=== PATIENT | male | born 1960 | race Caucasian/White ===

== ENCOUNTER 2024-07-25 09:06 | Observation (INO) ==
--- NOTE | 2024-06-15 12:34 | PAT Medication Instructions ---
Medication Instructions Date of Service June 15, 2024 Home Medications geriatric multivitamin-min 1 tab PO QAM tamsulosin 0.4 mg capsule 0.4 mg PO UD Continue as directed tamsulosin 0.4 mg capsule 0.4 mg PO UD DO NOT take the morning of surgery geriatric multivitamin-min 1 tab PO QAM MORNING OF SURGERY: NOTHING TO EAT OR DRINK AFTER MIDNIGHT Other Notes If you have any questions please call us at [phone] or [phone] or [phone] or [phone]
--- NOTE | 2024-06-22 09:12 | Anesthesiology Consultation ---
Date of Service June 22, 2024 Assessment & Plan (1) Encounter for pre-operative examination: Chart Review Chart Review: Acceptable Risk for Surgery and Patient seen in Pre Admission Testing Pt currently scheduled as 23 hours observation. If surgeon decides to change patient to Same Day Joint, patient would be acceptable risk for PORTER, pending patient is motivated, has good support and surgeon's office completes Same Day [facility] Program preop requirements. Per PAT appt on 06/22/24, no recent illness/disease exposures, illness related symptoms, or recent illness/disease positive tests. Will leave to surgeon's discretion if preop Covid testing needed Left knee arthroscopy, partial medial meniscectomy 10/09/22= Done under [facility] with LMA #5. Teaching & Discussion Pre-Anesthesia Teaching/Discussion Notes: Instructed NPO after midnight before surgery,except medications with 15 cc of water. Medication instructions provided according to the PAT guidelines. History Surgery Operation Date: 07/25/24 09:00 Proposed Procedures p Left Anterior Total Hip Arthroplasty - Jerome Ryder DO Height/Weight Height: 6 ft Weight: 94.8 kg Allergies Allergy/AdvReac Type Severity Reaction Status Date / Time No Known Allergies Allergy Verified 06/09/24 07:30 Medications Home Medications Medication Instructions Recorded Confirmed Last Taken geriatric multivitamin-min 1 tab PO QAM 09/10/21 06/09/24 10/08/22 tamsulosin 0.4 mg capsule 0.4 mg PO UD 10/01/22 06/09/24 10/08/22 Wheeled Walker #1 ea 06/22/24 Unknown Past Medical History Medical History BPH (benign prostatic hyperplasia) Osteoarthritis of left hip Osteoarthritis of left knee Exercise / Class Metabolic Activity II 4-5 Yardwork/Stairs/Walk up hill (one flight of stairs - no chest pain or SOB ) Past Family History Family History Son Diabetes Other No family history of adverse response to anesthesia Past Surgical History Surgical History History of repair of rotator cuff left History of tonsillectomy History of tooth extraction Hx of elbow surgery left Hx of umbilical hernia repair Hx of vasectomy S/P left knee arthroscopy (09/2022) 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 No hx of seizures, stroke, AR, apnea/snoring. No hx of blood clots or blood transfusions Physical Exam Vital Signs VITALS BP 126/83 P 60 TEMP 97.6 SP02 98% RESP 16 Constitutional no acute distress ENMT Mouth: no TMJ clicking Thyromental Distance: > or= 3.5 Finger Breadths (3.5) Mallampati Class: I Missing molar Neck + facial hair (advised to shave or trim ); neck extension not limited Respiratory normal respiratory effort; no respiratory distress Auscultation: lungs clear to auscultation bilaterally; no wheezes Cardiovascular Rate/Rhythm: regular rate and regular rhythm Heart Sounds: no murmur Vessels: no carotid bruit Musculoskeletal Spine: no pain with cervical ROM Extremities: extremities normal to inspection Psychiatric Orientation: alert Lab Results Anesthesia Preop Results Results Anesthesia Widget: WBC 5.36 K/ul (4.8-10.8) 06/22/24 Hgb 15.2 g/dl (14.0-18.0) 06/22/24 Hct 45.9 % (42.0-52.0) 06/22/24 Plt 153 K/uL (130-400) 06/22/24 Na 140 mmol/L (136-145) 06/22/24 K 4.5 mmol/L (3.5-5.1) 06/22/24 Cl 107 mmol/L (98-107) 06/22/24 CO2 28 mmol/L (21-32) 06/22/24 BUN 18 mg/dl (6-23) 06/22/24 Creat 0.71 mg/dl (0.6-1.4) 06/22/24 Glucose Level 104 mg/dl (70-99(Fasting)) H 06/22/24 PT 10.5 Seconds (9.0-12.0) 06/22/24 PTT 25 Seconds (21-31) 06/22/24 INR 1.0 (0.9-1.1) 06/22/24 Blood Type AB Positive 06/22/24 Antibody Screen NEGATIVE 06/22/24 Testing Electrocardiogram Date: 06/22/24 Findings: + NSR @ (62bpm) Normal EKG per cardio Chest X-Ray Date: 06/22/24 Findings: + NAD
--- NOTE | 2024-07-21 07:30 | History & Physical Report ---
Date of Service July 21, 2024 Assessment & Plan (1) Osteoarthritis of left hip: We will proceed with a left anterior total of arthroplasty. Postoperatively he will be started on aspirin for DVT prophylaxis and kept overnight in the hospital for postop medical management. He plans to use home health up in [facility] after discharge. History of Present Illness Chief Complaint: Osteoarthritis of the left hip. Primary Care Provider: KENYON PCP Hilario is a pleasant 63-year-old male who has been dealing with chronic increasing left hip and groin pain. X-rays and clinical examination have been diagnostic for advanced arthritis of the left hip. After failing extensive conservative treatment, including multiple injections, he has elected to proceed with a left anterior total hip arthroplasty. . Allergies Allergy/AdvReac Type Severity Reaction Status Date / Time No Known Allergies Allergy Verified 06/09/24 07:30 Home Medications Medication Instructions Recorded Confirmed Type geriatric multivitamin-min 1 tab PO QAM 09/10/21 06/09/24 History tamsulosin 0.4 mg capsule 0.4 mg PO UD 10/01/22 06/09/24 History Wheeled Walker #1 ea 06/22/24 Rx Past Med/Surg History Problem List Osteoarthritis of left hip Osteoarthritis of left knee S/P left knee arthroscopy Medial meniscus tear Scapular fracture Status post reverse total replacement of right shoulder (~09/2021) Encounter for pre-operative examination Medical History Osteoarthritis of left knee Osteoarthritis of left hip BPH (benign prostatic hyperplasia) Surgical History 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) S/P left knee arthroscopy (09/2022) Hx of vasectomy History of tooth extraction Hx of umbilical hernia repair History of repair of rotator cuff left Hx of elbow surgery left History of tonsillectomy Family History Son Diabetes Other No family history of adverse response to anesthesia Social History Smoking Status: Never smoker Tobacco Type: Smokeless Tobacco (Dip or Chew) Second Hand Exposure: No; Do You Dip or Chew Tobacco: Yes (chews daily (1 box/3-4 days - advised)); Hx Alcohol Use: No Hx Substance Use: No Preferred Language: Uzbek Communication Ability: Effective Offset Machine Operator Required: No Beliefs That Will Affect Care: None Current Living Situation: Family Feels Safe at Home: Yes Assistive Devices: Glasses Review of Systems All systems reviewed & are unremarkable except as noted in HPI & below. Physical Exam On physical exam of the left hip, he has decreased range of motion. He is pain with internal/external rotation. All of his pain is located in the groin.. Constitutional WD/WN, vitals as above Eyes PERRL, conjunctivae normal, anicteric sclerae ENMT external ear and nose normal, oropharynx normal Neck trachea midline, no thyromegaly Respiratory normal respiratory effort Cardiovascular RRR, no murmur, no edema Gastrointestinal (Abdomen) normal bowel sounds, soft, nontender, no hepatosplenomegaly Psychiatric A+Ox3, euthymic affect Results & Data Results & Data Laboratory Results . Diagnostic Findings X-rays of the left hip show advanced osteoarthritis with joint space narrowing, osteophyte summation, and [id number] articulation PG Care Time/CCT Total # of Minutes Spent Total Time Spent with Patient: Total time spent is greater than 50% in coordination of care (as documented) at patient's floor/unit and/or counseling patient: Coding Level of Care Code None Diagnoses Osteoarthritis of left hip M16.12
[~2024-07-25 09:06] MED LIST: BUPIVACAINE 0.5 % 5 MG/1 ML PF 10ML VIAL ONE
[2024-07-25] MEDS: LR 500ML BOLUS, THEN 15ML/HR IV SCH (09:40)
[2024-07-25] MEDS: FAMOTIDINE 20 MG TAB PO SCH (09:45)
[2024-07-25] MEDS: ACETAMINOPHEN 500 MG TAB PO SCH ×2 (09:45→16:19)
[2024-07-25] MEDS: dexAMETHasone**PF** 10 MG/ML VIAL IV SCH (09:45)
[2024-07-25] MEDS: GABAPENTIN 600 MG DOSE PO SCH (09:45)
[2024-07-25] MEDS: LR 60ML/HR IV SCH (09:46)
[2024-07-25] MEDS ORDERED: PROPOFOL IV EMULSION 10 MG/ML 20 ML VIAL IV ONE (10:14)
[2024-07-25] MEDS ORDERED: MIDAZOLAM HCL 1 MG/ML 2ML VIAL ONE (10:15)
--- NOTE | 2024-07-25 10:57 | History & Physical Bridge Note ---
Date of Service July 25, 2024 History & Physical Bridge Note I have examined the patient, reviewed the History & Physical and in the interval since the performance of the History & Physical I have noted the following changes of clinical significance: no changes noted
[2024-07-25] MEDS ORDERED: ATROPINE SULFATE 0.1 MG/ML 10ML SYR IV PRN (11:22)
[2024-07-25] MEDS ORDERED: ONDANSETRON INJ 2 MG/ML 2 ML VIAL IV PRN ×2 (11:22→14:13)
[2024-07-25] MEDS ORDERED: ePHEDrine sulfate 50 MG/ML AMP IV PRN (11:22)
[2024-07-25] MEDS ORDERED: fentaNYL citrate PF 100 MCG/2 ML VIAL IV PRN (11:22)
[2024-07-25] MEDS: TRANEXAMIC ACID 1,000 MG **IV Pre-op IV SCH (11:39)
[2024-07-25] MEDS: ceFAZolin 2000MG 2,000 MG/15 ML SYR IV SCH (11:57)
[2024-07-25] MEDS ORDERED: ONDANSETRON INJ 2 MG/ML 2 ML VIAL ONE (11:59)
[2024-07-25] MEDS ORDERED: GLYCOPYRROLATE 0.2 MG/ML VIAL ONE (11:59)
[2024-07-25] MEDS ORDERED: KETAMINE HCL 10MG/ML SYR ONE (11:59)
[2024-07-25] MEDS ORDERED: PHENYLEPHRINE 100MCG/ML 5ML SYR ONE ×2 (12:04→12:28)
[2024-07-25] MEDS: ORTHO JOINT ANESTHETIC ONE (12:15)
[2024-07-25] MEDS: ROPIV 0.5% 246mg, Ketorolac 30mg, EPINEPHrine 0.5mg in NSS INFIL SCH (12:15)
[2024-07-25] MEDS ORDERED: ePHEDrine sulfate 50 MG/ML AMP ONE (12:41)
[2024-07-25] MEDS ORDERED: PHENYLEPHRINE HCL 10 MG/ML VIAL ONE (12:41)
--- NOTE | 2024-07-25 12:43 | Operative Report ---
PG Post Operative Report Pre & Post Diagnosis Operation Date: 07/25/24 11:30 Pre-Op Diagnosis: Left Hip Arthritis Post-Op Diagnosis: Left Hip Arthritis I identified the patient and participated in the time-out.: Yes Procedure Operation Date: 07/25/24 11:30 Actual Procedures p Left Anterior Total Hip Arthroplasty(Left) - Jerome Ryder DO Surgeon Jerome Ryder DO [employer] Ar Pearl PA-C Estimated Blood Loss 250 Findings Consistent with Post-Op Diagnosis Specimens Left femoral head Description of Procedure Implants used I used a ZimmerBiomet total hip arthroplasty system with a size 5 standard offset Avenir Complete stem, a 54 mm G7 cup with a 25mm screw, an E1 polyethylene liner, a 40 mm ceramic head with a +3.5 neck. Hilario arrived at the hospital for the above procedure. He was seen in the preoperative holding area and the operative extremity was identified and signed. He was given a spinal anesthetic, a preoperative antibiotic, and TXA. He was then taken back to the operating room and laid on the table in the supine position. He was given basic sedation. The operative leg was secured to a P uristst leg positioner. The hip was then prepped and draped in sterile fashion. A timeout was done and the patient and the operative extremity was properly identified. An anterior approach was used. Dissection was taken down through the fascia and the tensor muscle belly was retracted laterally and the rectus was retracted medially. The circumflex vessels were identified and ligated. The capsule was then incised and tagged for later repair. The femoral neck was then cut and the femoral head was removed. The acetabulum was exposed. Time was spent doing a complete circumferential labral release. Sequential reaming of the acetabulum up to a size 53 reamer was done. Final reamings were done under fluoroscopy to ensure appropriate version. A Biomet 54 mm G7 cup was then impacted into place. A single 25 mm screw was placed. The E1 polyethylene liner was then snapped into place. Surrounding soft tissues were then injected with 100 cc of an orthopedic pain control cocktail. The proximal femur was then exposed. Sequential broaching up to a size 5 broach was done. Off that broach a size 40 head with a +3.5 neck was trialed. The hip was reduced and fluoroscopic images showed anatomic alignment of the implants in acceptable length. The broach was removed. The final size 5 standard offset Avenir Complete stem was then impacted into place. A ceramic 40 mm head with a +3.5 neck was then impacted onto the stem and the hip was reduced. Final fluoroscopic images showed anatomic alignment of the hip. The capsule was then closed with #1 Vicryl suture. A dilute betadyne lavage was then done for 3 minutes. The joint was then irrigated with normal saline solution. The fascia was closed with #1 PDS suture. Skin was closed with 2-0 Vicryl, luly, and a Silverlon dressing. He was then transferred to a hospital bed and taken to the post anesthesia care unit in stable condition. He tolerated the procedure well. Ar Pearl PA-C, was present for the entire procedure. He was critical for patient positioning, prepping, draping, retraction exposure, wound closure and application of sterile dressing. I attest to the content of the Intraoperative Record and any orders documented therein. Any exceptions are noted below.
[2024-07-25] MEDS: TRANEXAMIC ACID 1,000 MG **IV Intra-op IV SCH (12:45)
--- NOTE | 2024-07-25 13:20 | Fluoroscopy Report ---
FL hip LT 1V CLINICAL HISTORY: LEFT ANTERIOR HIP COMPARISON STUDY: None FLUOROSCOPY TIME: 12 seconds FLUOROSCOPY IMAGES: 1 EXPOSURE DOSE: 1.3 mGy FINDINGS: Fluoroscopy was provided for placement of left hip prosthesis. IMPRESSION: Intraoperative fluoroscopy. ACT 112: Negative or not required by law. Electronically signed by: Roddy Claire M.D. 07/25/2024 1:19 PM
--- NOTE | 2024-07-25 13:35 | XRay Report ---
XR hip 1V LT w pelvis CLINICAL HISTORY: IN PACU - Post Surgical COMPARISON: None FINDINGS: Left hip prosthesis shows no hardware complication. There is expected soft tissue gas. Ski n luly are present laterally. IMPRESSION: Unremarkable postoperative exam. ACT 112: Negative or not required by law. Electronically signed by: Roddy Claire M.D. 07/25/2024 1:33 PM
[2024-07-25] MEDS ORDERED: MAGNESIUM HYDROXIDE SUSP 30 ML UDC PO PRN (14:13)
[2024-07-25] MEDS ORDERED: HYDROmorphone INJ 0.5 MG/0.5 ML SYR IV PRN (14:13)
[2024-07-25] MEDS ORDERED: NALOXONE HCL 0.4 MG/1 ML VIAL/CARP IV PRN (14:13)
[2024-07-25] MEDS ORDERED: METOCLOPRAMIDE HCL INJ 5 MG/ML 2 ML VIAL IV PRN (14:13)
[2024-07-25] MEDS ORDERED: bisacodyL 10 MG SUPP PR PRN (14:13)
--- NOTE | 2024-07-25 15:28 | Anesthesiology Progress Note ---
Date of Service July 25, 2024 Anesthesia Post Procedure Vital Signs Vital Signs: Temp Pulse Pulse Resp BP Pulse Ox O2 Del Method 07/25/24 15:25 62 19 131/77 95 Room Air 07/25/24 15:15 51 L 14 111/64 99 Room Air 07/25/24 15:05 51 L 12 121/70 98 Room Air 07/25/24 14:55 71 20 127/79 100 Room Air 07/25/24 14:45 64 18 120/79 96 Room Air 07/25/24 14:35 70 15 115/72 98 Room Air 07/25/24 14:25 69 13 115/63 97 Room Air 07/25/24 14:15 65 15 97/69 L 98 Room Air 07/25/24 14:05 64 18 113/75 96 Room Air 07/25/24 13:55 70 15 108/75 97 Room Air 07/25/24 13:45 67 16 121/76 93 Room Air 07/25/24 13:35 79 16 103/70 97 Room Air 07/25/24 13:25 96 H 24 98/84 L 96 Room Air 07/25/24 13:15 101 H 13 99/73 L 94 Oxymask 07/25/24 13:09 36.4 C L 97 H 16 112/65 97 Oxymask 07/25/24 09:25 36.6 C 64 20 153/86 H 100 Room Air O2 Flow Rate 07/25/24 15:25 07/25/24 15:15 07/25/24 15:05 07/25/24 14:55 07/25/24 14:45 07/25/24 14:35 07/25/24 14:25 07/25/24 14:15 07/25/24 14:05 07/25/24 13:55 07/25/24 13:45 07/25/24 13:35 07/25/24 13:25 07/25/24 13:15 5 07/25/24 13:09 5 07/25/24 09:25 Pain Intensity Left Hip: Pain Intensity: 4 Transfer of Care Handoff Completed per policy Notes Mental Status: alert / awake / arousable Patient Amnestic to Procedure: Yes Nausea / Vomiting: adequately controlled Pain: adequately controlled Airway Patency, RR, SpO2: stable & adequate BP & HR: stable & adequate Hydration State: stable & adequate Neuraxial Anesthesia: was administered and sensory block is resolving Anesthetic Complications: no major complications apparent
[2024-07-25] MEDS: KETOROLAC TROMETHAMINE 15 MG/ML VIAL IV SCH (16:18)
[2024-07-25] MEDS: CEFEPIME 2000MG 2,000 MG/20 ML SYR IV SCH (16:49)
[2024-07-25] MEDS ORDERED: ceFAZolin 1000MG 1,000 MG/7.5 ML SYR IV SCH (19:15)
[2024-07-25] MEDS: DOCUSATE SODIUM 100 MG CAP PO SCH (20:16)
[2024-07-25] MEDS: ASPIRIN 81 MG ECTAB PO SCH (20:16)
[2024-07-25] MEDS: SENNA 8.6 MG TAB PO SCH (20:16)
[2024-07-26 02:18] VITALS: RESP 16
[2024-07-26 07:35] VITALS: BP 129/70; PULSE 55; TEMP 97.3; O2SAT 99
[2024-07-26] MEDS: TAMSULOSIN HCL 0.4 MG CAP PO SCH (07:53)
[2024-07-26] MEDS: dexAMETHasone 4 MG TAB PO SCH (07:54)
[2024-07-26] MEDS: MULTIVITAMIN TAB PO SCH (07:54)
[2024-07-26] MEDS: oxyCODONE HCL IR 5 MG TAB (IMMEDIATE RELEASE) PO PRN (07:57)
[2024-07-26] MEDS ORDERED: TAMSULOSIN HCL 0.4 MG CAP PO SCH (09:00)
--- NOTE | 2024-07-26 09:22 | Orthopedic Progress Note ---
Date of Service July 26, 2024 Assessment & Plan (1) Status post left hip replacement: Assessment: Status post left anterior total hip arthroplasty. Plan: Overall, he is doing quite well today with good pain control left hip. He will work with physical therapy later this morning to work on ambulation and range of motion exercises. He is on aspirin for DVT prophylaxis. He can be discharged home later this morning pending formal physical therapy evaluation recommendations. Silverlon dressing will remain in place for 7 days. He may leave the surgical site open to air after 7 days. He will follow-up with orthopedics in 2 weeks for continued postoperative management or sooner if needed. Subjective Uzma Rich was seen this morning resting comfortably in no apparent distress. He notes that his pain is well-controlled to his left hip. He notes he has been up and out of bed without any significant issues. He has yet to work physical therapy this morning. He denies any concerns with surgical incision site. Denies any active bleeding, discharge, or signs infection. He denies any other concerns today. Review of Systems All systems reviewed & are unremarkable except as noted in HPI & below. Physical Exam . On physical examination of the left hip, dressing is in place, clean, dry, and intact. There is no signs of active bleeding, discharge, or signs of infection. No tenderness to palpation. His leg is out in full extension. Limited range of motion and strength secondary to postoperative stiffness soreness. Calf soft nontender to palpation. Negative Homans' sign. Intact plantarflexion dorsiflexion of left ankle. +2 DP and PT pulses. Less than 2-second capillary refill. Normal sensation. Neurovascular intact. Results & Data Results & Data Laboratory Results . Diagnostic Findings . Hip X-Ray 07/25/24 11:30 FL hip LT 1V CLINICAL HISTORY: LEFT ANTERIOR HIP COMPARISON STUDY: None FLUOROSCOPY TIME: 12 seconds FLUOROSCOPY IMAGES: 1 EXPOSURE DOSE: 1.3 mGy FINDINGS: Fluoroscopy was provided for placement of left hip prosthesis. IMPRESSION: Intraoperative fluoroscopy. ACT 112: Negative or not required by law. Electronically signed by: Roddy Calire M.D. 07/25/2024 1:19 PM Hip/Pelvis X-Ray 07/25/24 13:11 XR hip 1V LT w pelvis CLINICAL HISTORY: IN PACU - Post Surgical COMPARISON: None FINDINGS: Left hip prosthesis shows no hardware complication. There is expected soft tissue gas. Skin luly are present laterally. IMPRESSION: Unremarkable postoperative exam. ACT 112: Negative or not required by law. Electronically signed by: Roddy Claire M.D. 07/25/2024 1:33 PM PG Care Time/CCT Total # of Minutes Spent Total Time Spent with Patient: Total time spent is greater than 50% in coordination of care (as documented) at patient's floor/unit and/or counseling patient: Coding Level of Care Code 13623 Post Operative Follow-Up Diagnoses Status post left hip replacement Z96.642
--- NOTE | 2024-07-26 09:24 | Discharge Summary ---
Date of Service July 26, 2024 Admission HPI (Per Admitting) Hilario is a pleasant 63-year-old male who has been dealing with chronic increasing left hip and groin pain. X-rays and clinical examination have been diagnostic for advanced arthritis of the left hip. After failing extensive conservative treatment, including multiple injections, he has elected to proceed with a left anterior total hip arthroplasty. . Admission Exam (Per Admitting) On physical exam of the left hip, he has decreased range of motion. He is pain with internal/external rotation. All of his pain is located in the groin.. Principal Diagnosis Same as "Discharge Diagnosis" noted below under Discharge Instructions. Discharge Exam . On physical examination of the left hip, dressing is in place, clean, dry, and intact. There is no signs of active bleeding, discharge, or signs of infection. No tenderness to palpation. His leg is out in full extension. Limited range of motion and strength secondary to postoperative stiffness soreness. Calf soft nontender to palpation. Negative Homans' sign. Intact plantarflexion dorsiflexion of left ankle. +2 DP and PT pulses. Less than 2-second capillary refill. Normal sensation. Neurovascular intact. Discharge Data Procedures Performed Operation Date: 07/25/24 11:30 Actual Procedures p Left Anterior Total Hip Arthroplasty, Uncemented(Left) - Jerome Ryder, DO Ordered Studies 07/25/24 11:30 FL hip LT 1V Routine Hospital Course (1) Status post left hip replacement: On July 25, 2024 Hilario arrived at [facility] and underwent a left anterior total hip arthroplasty performed by Dr. Ryder with no complications. He had a spinal anesthetic. Postoperatively, he was started on aspirin for DVT prophylaxis and transferred to the general orthopedic floor in stable condition. His hospital course was uneventful. On postoperative day #1, his vital signs are stable and his pain was well-controlled. He participated well with physical therapy working on ambulation and range of motion exercises. He was then discharged home in stable condition. He will follow-up with orthopedics in 2 weeks for continued postoperative management or sooner if needed. PG Care Time/CCT Total # of Minutes Spent Total Time Spent with Patient: Total time spent is greater than 50% in coordination of care (as documented) at patient's floor/unit and/or counseling patient: Discharge Plan Discharge Items Patient Disposition: Home - Self-Care Reason For Visit: Left Hip Arthritis Discharge Diagnosis: Osteoarthritis left hip Activity: Per Instructions section Non-emergency contact: Surgeon Call non-emergency contact if: your wound has increased redness and your wound has increased drainage Follow-up/Referrals: PCP,NO [Primary Care Provider] - Diet: Regular Addtl Attending Provider Instructions: Activity and Therapy Recommendations: * If you are using [facility] then therapy will be provided at your home until they feel you have accomplished all of your goals. * If you are using [facility] then Physical Therapy will be provided until they feel you are ready to start Outpatient Physical Therapy. * If you are not using home therapy then Outpatient Physical Therapy should start about 3-5 days from your day of surgery. Therapy will last about 6-10 weeks * You were shown a series of exercises in the hospital. Do these exercises three times each day including the exercises you were shown in physical therapy. * Get up and walk several times each day.~ For the first four weeks, try not to stand or walk for more than one hour at a time. If you do stand or walk for more than one hour, you will not hurt anything, but your leg will likely swell.~~ * As you feel comfortable, you may change from the walker or crutches to a cane and~then to independent walking. Medications: * Narcotic You will likely be sent home from the hospital with a prescription for the narcotic pain medication that worked best throughout your stay. * Cefadroxil -take the antibiotic twice a day for 10 days to help prevent infection. * Aspirin Most patients will be required to take Aspirin 81mg twice a day for 6 weeks after surgery. This is obtained [id number] and a prescription is not necessary. * Other medications may be prescribed for specific circumstances. If you have any questions, please call the office at . * Resume previous home medications unless otherwise instructed TEDs/Elastic Stockings: The white elastic stockings help limit swelling and prevent blood clots from forming in your legs. The more you wear them, the more they work. Wear them for six weeks. Dressing Care: Leave the Silverlon dressing in place for 7 days. After 7 days you may remove the dressing. If the incision is not draining then you may leave the luly open to air. If there is a little bit of drainage or if the luly are getting stuck on your clothing then cover the incision with a dry dressing. The luly will be removed at your 2 week follow-up appointment. Showering: You may shower with the Silverlon dressing in place. Do not let the shower spray hit the dressing directly. Pat the Silverlon dressing dry. If the dressing becomes wet underneath, then simply remove the dressing. Keep the incision dry until you are 7 days out from the day of surgery. After 7 days you may remove the Silverlon dressing and shower with the luly exposed. Let soapy water run over the luly and pat them dry. Do not scrub or soak the incision. Diet: You may resume your previous diet. Things To Watch For: * Drainage from the incision site that occurs more than one week after your surgery. * Increased redness at the incision site. * Fever above 102 degrees Fahrenheit. * Unusual chest pain or shortness of breath. * Call [facility] at with any of the above problems Follow-Up Visit: Follow-up with Dr. Ryder's office 2-3 weeks after your day of surgery. We will remove your luly and answer any questions. If you have any additional questions or concerns, Dr Ryder is usually in the office at the same time and will be available An appointment was probably scheduled when you signed-up for surgery in the office. If you have any questions call Office Instructions: More detailed instructions as well as Frequently Asked Questions were provided in a folder by our office when you signed-up for surgery. Please review these instructions when you get home. If you have any further questions or concerns, please feel free to call the office at [phone] Pending Studies at Discharge: No Stand-Alone Forms: My [facility] [place], Smoking Cessation Medications and DC Order Prescriptions: New aspirin 81 mg Tablet,Delayed Release (Dr/Ec) 81 mg PO BID 42 Days Qty: 84 0RF cefadroxil 500 mg capsule 500 mg PO BID 10 Days Qty: 20 0RF oxycodone 5 mg tablet 5 mg PO Q6H PRN (Reason: pain) Qty: 30 0RF Continued (DME) Wheeled Walker Misc See Rx Instructions .MEDSUPPLY Qty: 1 0RF Rx Instructions: As directed tamsulosin 0.4 mg Capsule 0.4 mg PO UD Rx Instructions: 0.4 mg on Thu, 0.8 mg all other days geriatric multivitamin-min Tablet 1 tab PO QAM Discharge Orders: Discharge Order (Routine); Ordered 07/26/24 Ordered By: David Pearl Admission Data Admit Date/Time: 07/25/24 13:11 Attending Provider: Jerome Ryder Admit Provider: Jerome Ryder Primary Care Provider: PCP,NO
[2024-07-27] MEDS ORDERED: TAMSULOSIN HCL 0.4 MG CAP PO SCH (09:00)
== END 2024-07-26 11:34 | disposition home health service (06) ==
LOC: ASU 09:06 → 3E 09:06